=== PATIENT | female | born 1945 | race Two or more races ===

== ENCOUNTER 2019-11-09 07:07 | Inpatient (IN) | payer OTHER ==
[2019-11-09 07:26] VITALS: BMI 28.4
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
[2019-11-09] MEDS ORDERED: SODIUM CHLORIDE 0.9% 500 ML INFUS.BAG IV ONE ×2 (07:40→09:57)
[2019-11-09] MEDS ORDERED: ONDANSETRON 4 MG/2 ML VIAL IVPUSH ONE (07:41)
[2019-11-09] MEDS ORDERED: ACETAMINOPHEN 1000 MG/100 ML VIAL (NON FORMULARY) IVPB ONE ×2 (07:41→13:21)
[2019-11-09] MEDS ORDERED: ACETAMINOPHEN INJECTION 100 ML IVPB ONE (07:45)
[2019-11-09] MEDS ORDERED: ONDANSETRON 4 MG/2 ML VIAL ONE (07:45)
--- NOTE | 2019-11-09 07:45 | PDOC ---
Attending Attestation - Resident Resident Name: Benjamin Patton - ED Attending Attestation I have performed the following: I have examined & evaluated the patient, The case was reviewed & discussed with the resident, I agree w/resident's findings & plan - HPI HPI: 11/09/19 08:20 74 YOF with h/o HTN presenting with acute onset of RUQ abdominal pain a/w nausea and vomiting this morning at 2AM +chest pain with the vomiting no fever or chills, SOB, cough, urinary symptoms or changes. no surgical history no other sick contacts denies suspicious food intake. 11/09/19 11:09 - Physicial Exam PE: 11/09/19 07:45 Agree with the resident's HPI and PE as documented in the electronic medical record. mild distress 2/2 pain, EOMI, PERRL, nl conjunctiva, anicteric; neck supple. lungs clear, RRR, abdomen soft +RUQ tenderness, +De La Cruz's, no rebound, guarding. Back nontender. DALE x4, no focal neuro deficits. No peripheral edema. normal color for ethnicity, WWP. 11/09/19 08:21 11/09/19 11:09 - Medical Decision Making 11/09/19 07:45 Vital Signs Temp Pulse Resp BP Pulse Ox 97.3 F L 73 18 154/68 98 11/09/19 07:10 11/09/19 07:10 11/09/19 07:10 11/09/19 07:10 11/09/19 07:10 vitals reviewed, wnl, mildly hypertensive, afebrile normal HR and sats/breathing DDx abdominal pain: Renal colic, biliary colic, metabolic/electrolyte derangements. GERD, PUD, esophageal spasm, pancreatitis, hepatitis, constipation , colitis, gastroenteritis, cholecystitis, UTI, pyelonephritis, ileus, SBO, medication side effect, hernia, appendicitis, diverticulitis, mesenteric ischemia. msk strain, mesenteric adenitis, psoas abscess. ED interventions: IVF, analgesia, antiemetics, reassess labs/RUQ sono. EKG, cards panel. 11/09/19 08:58 Laboratory results are within normal limits, no leukocytosis coags are within normal limits. Normal LFTs and lipase unlikely be hepatitis/pancreatitis at this time. Troponin is negative unlikely due to cardiac as well Chest x-ray is clear no evidence of edema or infiltrate or mass, normal cardiac silhouette Right upper quadrant ultrasound remarkable for large stone, GB distension and + de la cruz's sign. no wall edema or fluid, but with several signs present, indicate of early acute cholecystitis. IV abx ceftriaxone and flagyl for empiric aerobe/anaerobe coverage with findings suggestive of early romeo Surg CS with Dr Loco for surg eval/management, will perform surgery todya. admit for sx cholelithiasis, ?early cholecystitis given findings of +murphys, distended GB and large stone. admit to Dr Bowens service 11/09/19 10:49 11/09/19 11:09 11/09/19 11:10 Heart Score/ECG Review #1 ECG reviewed & interpreted by me at: 07:55 General ECG Interpretation: Sinus Rhythm, Normal Rate, Normal Intervals 11/09/19 08:16 EKG sinus bradycardia at 59 bpm, no interval abnormalities, narrow QRS, ST and T wave segments and morphology normal. Nonspecific T wave abnormalities in III only
[2019-11-09 08:17] LABS: BASO % 0.3 % (0-2.0); EOS % 0.1 % (0-4.5); HEMATOCRIT 42.3 % (32.4-45.2); HEMOGLOBIN 13.7 GM/dL (10.7-15.3); LYMPH % 9.7 % (8-40); MCH 28.3 pg (25.7-33.7); MCHC 32.5 g/dl (32.0-36.0); MEAN PLT VOLUME 8.4 fl (7.5-11.1); MONO % 2.3 % (3.8-10.2); NEUT % 87.6 % (42.8-82.8); PLATELET COUNT 213 K/MM3 (134-434); RBC 4.86 M/mm3 (3.60-5.2); RDW 13.7 % (11.6-15.6); WHITE BLOOD COUNT 9.9 K/mm3 (4.0-10.0)
[2019-11-09 08:40] LABS: INR 1.03 (0.83-1.09); PROTHROMBIN TIME (PATIENT) 12.1 SEC (9.7-13.0)
[2019-11-09 08:53] LABS: ALBUMIN 3.4 g/dl (3.4-5.0); BILIRUBIN,TOTAL 0.3 mg/dL (0.2-1); BLOOD UREA NITROGEN 18.4 mg/dL (7-18); CALCIUM 10.4 mg/dL (8.5-10.1); CREATININE 0.8 mg/dL (0.55-1.3); TOT PROT 6.4 g/dl (6.4-8.2)
[2019-11-09] MEDS ORDERED: CEFTRIAXONE 2,000 MG in DEXTROSE 5%-WATER - 50 ML IVPB ONE (09:23)
[2019-11-09] MEDS ORDERED: CEFTRIAXONE 2 GM/100 ML BAG IVPB ONE (09:36)
[2019-11-09] MEDS ORDERED: morphine CARPU-JECT 4 MG/1 ML DISP.SYRIN IVPUSH ONE (09:46)
[2019-11-09] MEDS ORDERED: METOCLOPRAMIDE HCL INJECTION 10 MG/2 ML VIAL IVPB ONE (09:46)
[2019-11-09] MEDS ORDERED: METOCLOPRAMIDE HCL INJECTION 10 MG/2 ML VIAL ONE (09:46)
[2019-11-09] MEDS ORDERED: morphine SULFATE 4 MG/ML VIAL ONE (09:46)
[2019-11-09] MEDS ORDERED: LACTATED RINGERS SOLUTION 1,000 ML/1,000 ML INFUS.BAG IV SCH ×2 (10:45→17:52)
--- NOTE | 2019-11-09 11:19 | HP ---
Admitting History and Physical - Primary Care Physician PCP: Joey Horner - Admission Chief Complaint: RUQ pain History of Present Illness: Patient is a 74 y/o female with past medical history of HTN (no current med regimen) and asthma. Patient complain of RUQ pain with vomiting which began at 2am this morning. Pain became progressively worse and she presented to [facility] ER. In ER Abdominal US shows gallbladder normal in size but contains large calculus. Patient evaluated by Surgery in ER and will be going to OR for cholecystectomy today. History Source: Patient Limitations to Obtaining History: No Limitations - Past Medical History Cardiovascular: Yes: HTN Pulmonary: Yes: Asthma - Past Surgical History Past Surgical History: Yes: None - Smoking History Smoking history: Unknown if ever smoked - Alcohol/Substance Use Hx Alcohol Use: No - Social History Usual Living Arrangement: Yes: With Spouse ADL: Independent History of Recent Travel: No Home Medications - Allergies Allergies/Adverse Reactions: Allergies Allergy/AdvReac Type Severity Reaction Status Date / Time No Known Allergies Allergy Verified 11/09/19 07:23 Review of Systems - Review of Systems Constitutional: reports: Chills, Fever, Loss of Appetite Eyes: reports: No Symptoms HENT: reports: No Symptoms Neck: reports: No Symptoms Cardiovascular: reports: No Symptoms Respiratory: reports: Cough Gastrointestinal: reports: Abdominal Pain, Nausea, Vomiting Genitourinary: reports: No Symptoms Breasts: reports: No Symptoms Reported Musculoskeletal: reports: No Symptoms Integumentary: reports: No Symptoms Neurological: reports: No Symptoms Endocrine: reports: No Symptoms Hematology/Lymphatic: reports: No Symptoms Psychiatric: reports: No Symptoms Physical Examination Vital Signs: Vital Signs Temperature 97.3 F L 11/09/19 07:10 Pulse Rate 73 11/09/19 07:10 Respiratory Rate 18 11/09/19 07:10 Blood Pressure 154/68 11/09/19 07:10 O2 Sat by Pulse Oximetry (%) 98 11/09/19 07:10 Constitutional: Yes: No Distress, Calm Eyes: Yes: Conjunctiva Clear HENT: Yes: Atraumatic Neck: Yes: Supple Cardiovascular: Yes: Regular Rate and Rhythm Respiratory: Yes: Regular, CTA Bilaterally Gastrointestinal: Yes: Normal Bowel Sounds, Soft, Tenderness (RUQ) Musculoskeletal: Yes: Muscle Weakness Extremities: Yes: WNL Edema: No Neurological: Yes: Alert, Oriented Psychiatric: Yes: Alert, Oriented Labs: CBC, BMP 11/09/19 07:30 11/09/19 07:30 Imaging - Results Ultrasound: Report Reviewed EKG: Report Reviewed Problem List - Problems (1) Cholelithiasis Assessment/Plan: -Surgery Consult -GI consult -Abdominal US shows cholithiasis -NPO for surgery -Cholecystectomy this afternoon -Cardiology and PUlm consult for pre-op clearance -pain control -IV hydration -lipase 74 Code(s): K80.20 - CALCULUS OF GALLBLADDER W/O CHOLECYSTITIS W/O OBSTRUCTION (2) HTN (hypertension) Assessment/Plan: -low Na diet when resume -cardiology consult for pre-op clearance Code(s): I10 - ESSENTIAL (PRIMARY) HYPERTENSION (3) Asthma Assessment/Plan: -Bronchodilators -Pulm consult for pre-op clearance -keep SpO2 >90% -O2 via NC prn for SOB Code(s): J45.909 - UNSPECIFIED ASTHMA, UNCOMPLICATED Assessment/Plan see problem list SCDs
[2019-11-09] MEDS ORDERED: MORPHINE SULFATE 2 MG/ML VIAL IVPUSH PRN (11:39)
[2019-11-09] MEDS ORDERED: SODIUM CHLORIDE 1,000 ML IV SCH (12:00)
--- NOTE | 2019-11-09 12:52 | CON.PULM ---
Consult Consult Specialty:: PULM/CCM Referred by:: LILI Reason for Consultation:: Pre-op clearance - History of Present Illness Chief Complaint: Abdominal pain History of Present Illness: 74 F, HTN and supposed history of Asthma. Patient long time tobacco smoker. Currently smokes about 1 pack per week. Reports having developed asthma as an adult due to chronic exposure to cats. She does not recall having baseline PFTs. Occasionally uses Albuterol, last use was about 2 months ago. She is not steroid dependent. She have never been intubated. She does snore and according to her there are periods of apnea and "abnormal breathing" while she is asleep. Admitted via the ER due to abdominal pain and found to have Cholelithiasis. She will be going to the OR today. CXR: no acute process - History Source History Provided By: Patient, Family Member Limitations to Obtaining History: No Limitations - Past Medical History Cardio/Vascular: Yes: HTN Pulmonary: Yes: Asthma, Bronchitis, Sleep Apnea. No: Cancer, COPD, O2 Dependent , Pneumonia, Previously Intubated, Pulmonary Embolus, Pulmonary Fibrosis - Past Surgical History Past Surgical History: Yes: None - Alcohol/Substance Use Hx Alcohol Use: No - Smoking History Smoking history: Unknown if ever smoked - Social History ADL: Independent History of Recent Travel: No Home Medications - Allergies Allergies/Adverse Reactions: Allergies Allergy/AdvReac Type Severity Reaction Status Date / Time No Known Allergies Allergy Verified 11/09/19 07:23 Review of Systems - Review of Systems Constitutional: reports: Loss of Appetite, Malaise. denies: Chills, Night Sweats, Unintentional Wgt. Loss Eyes: reports: No Symptoms HENT: reports: No Symptoms Neck: reports: No Symptoms Cardiovascular: denies: Chest Pain, Edema, Palpitations, Shortness of Breath Respiratory: reports: Snoring. denies: Cough, Exercise Intolerance, Hemoptysis , Orthopnea, PND, SOB, SOB on Exertion, Wheezing Gastrointestinal: reports: Abdominal Pain, Bloating, Indigestion, Nausea. denies: Rectal Bleeding Genitourinary: reports: No Symptoms Breasts: reports: No Symptoms Reported Musculoskeletal: reports: No Symptoms Integumentary: reports: No Symptoms Neurological: reports: No Symptoms Endocrine: reports: No Symptoms Hematology/Lymphatic: reports: No Symptoms Psychiatric: reports: No Symptoms Physical Exam Vital Sings: Vital Signs Temperature 97.6 F 12/23/19 11:40 Pulse Rate 92 H 11/09/19 11:40 Respiratory Rate 18 11/09/19 11:40 Blood Pressure 155/67 11/09/19 11:40 O2 Sat by Pulse Oximetry (%) 96 11/09/19 11:40 Constitutional: Yes: No Distress Eyes: Yes: Conjunctiva Clear, EOM Intact HENT: Yes: Atraumatic, Normocephalic Neck: Yes: Supple, Trachea Midline Cardiovascular: Yes: Regular Rate and Rhythm Respiratory: No: Accessory Muscle Use, Diminished, Rales, Rhonchi, SOB, SOB on Exertion, Stridor, Tachypnea, Wheezes ...Inspection: Yes: WNL ...Clubbing: No Gastrointestinal: Yes: Soft, Abdomen, Obese, Tenderness. No: Palpable Mass, Pulsatile Mass, Vomiting Renal/: Yes: WNL Musculoskeletal: Yes: WNL Extremities: Yes: WNL Edema: No Peripheral Pulses WNL: Yes Integumentary: Yes: WNL Neurological: Yes: WNL, Alert, Oriented ...Motor Strength: WNL Psychiatric: Yes: WNL, Alert, Oriented Labs: CBC, BMP 11/09/19 07:30 11/09/19 07:30 Imaging - Results Chest X-ray: Report Reviewed, Image Reviewed Problem List - Problems (1) Asthma Code(s): J45.909 - UNSPECIFIED ASTHMA, UNCOMPLICATED (2) Cholelithiasis Code(s): K80.20 - CALCULUS OF GALLBLADDER W/O CHOLECYSTITIS W/O OBSTRUCTION (3) HTN (hypertension) Code(s): I10 - ESSENTIAL (PRIMARY) HYPERTENSION Assessment/Plan IMP: High clinical suspicion of Obstructive Sleep Apnea Syndrome More Likely COPD rather than true Asthma: At present clinically stable PLAN: No smoking counseled Supplemental O2 as needed BD TX PRN ordered No indication for systemic steroids Outpatient PFTs once stable Formal sleep testing after discharge Should have Screening LDCT Chest as an outpatient There is no Pulmonary Contraindication for OR or Anesthesia Dr Cleary
[2019-11-09] MEDS ORDERED: ALBUTEROL SO4 2.5/IPRATROPIUM 0.5 INH SOL 3 ML VIAL.NEB. NEB PRN ×2 (13:01→17:52)
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
[2019-11-09] MEDS ORDERED: ONDANSETRON 4 MG/2 ML VIAL IVPUSH PRN ×3 (13:21→17:52)
--- NOTE | 2019-11-09 13:26 | EKG ---
Test Reason : Blood Pressure : / mmHG Vent. Rate : 059 BPM Atrial Rate : 059 BPM P-R Int : 156 ms QRS Dur : 096 ms QT Int : 438 ms P-R-T Axes : 036 005 026 degrees QTc Int : 433 ms SINUS BRADYCARDIA WITH SINUS ARRHYTHMIA MINIMAL VOLTAGE CRITERIA FOR LVH, MAY BE NORMAL VARIANT BORDERLINE ECG NO PREVIOUS ECGS AVAILABLE Confirmed by CINTHYA GUTIÉRREZ MD ([id number]) on 11/09/2019 1:26:12 PM Referred By: Confirmed By:CINTHYA GUTIÉRREZ MD
[2019-11-09] MEDS ORDERED: DEXAMETHASONE SOD PHOSPHATE 4 MG/1 ML VIAL ONE (13:37)
[2019-11-09] MEDS ORDERED: PROPOFOL 20 ML ONE ×2 (13:38)
[2019-11-09] MEDS ORDERED: ROCURONIUM BROMIDE 50 MG/5 ML SYRINGE ONE (13:38)
[2019-11-09] MEDS ORDERED: MIDAZOLAM HCL 2 MG/2 ML SINGLE DOSE VIAL ONE (13:38)
[2019-11-09] MEDS ORDERED: EPHEDRINE SULFATE/0.9% NACL/PF 50 MG/10 ML SYRINGE NR ONE ×2 (13:44→15:49)
[2019-11-09] MEDS ORDERED: SUCCINYLCHOLINE CHLORIDE 200 MG/10 ML SYRINGE ONE (13:45)
[2019-11-09] MEDS ORDERED: VANCOMYCIN 1,000 MG VIAL (RESTRICTED TO ID ONLY) ONE (13:54)
[2019-11-09] MEDS ORDERED: ceFAZolin SODIUM 1 GM VIAL ONE (13:55)
[2019-11-09] MEDS ORDERED: LIDOCAINE HCL 1%, 10 MG/ML (20ML VIAL) ONE (14:06)
[2019-11-09] MEDS ORDERED: BENZOIN/ALOE VERA/STORAX/TOLU 58 ML BOTTLE ONE (14:06)
[2019-11-09] MEDS ORDERED: BUPIVACAINE HCL/PF 0.5% (5 MG/ML) 30 ML VIAL IJ ONE ×3 (14:07→15:58)
--- NOTE | 2019-11-09 14:44 | CON.CARD ---
Consult Consult Specialty:: Cardiology Reason for Consultation:: PreOp evaluation - History of Present Illness Chief Complaint: RUQ pain. History of Present Illness: This is a 74 year old female with a PMH of HTN (currently not on medications) and asthma. She presents with RUQ pain and vomiting. The is ED, Abdominal US shows gallbladder normal in size but contains large calculus. Patient evaluated by Surgery in ER and will be going to OR for cholecystectomy. She denies cardiac symptoms and has no significant past cardiac history. EKG 11/09/19 Sinus bradycardia wiht sinus arrhymia, normal intervals, normal axis, and NSSTTW changes. - Past Medical History Cardio/Vascular: Yes: HTN Pulmonary: Yes: Asthma, Bronchitis, Sleep Apnea. No: Cancer, COPD, O2 Dependent , Pneumonia, Previously Intubated, Pulmonary Embolus, Pulmonary Fibrosis ...: No - Past Surgical History Past Surgical History: Yes: None - Alcohol/Substance Use Hx Alcohol Use: No - Smoking History Smoking history: Current some day smoker Have you smoked in the past 12 months: Yes If you are a former smoker, when did you quit?: pack per week - Social History ADL: Independent History of Recent Travel: No Home Medications - Allergies Allergies/Adverse Reactions: Allergies Allergy/AdvReac Type Severity Reaction Status Date / Time No Known Allergies Allergy Verified 11/09/19 07:23 Vital Signs: Vital Signs Temperature 97.6 F 11/09/19 13:07 Pulse Rate 88 11/09/19 13:07 Respiratory Rate 18 11/09/19 13:07 Blood Pressure 158/88 11/09/19 13:07 O2 Sat by Pulse Oximetry (%) 95 11/09/19 13:07 Constitutional: Yes: No Distress Eyes: Yes: WNL HENT: Yes: WNL Neck: Yes: WNL Respiratory: Yes: CTA Bilaterally Gastrointestinal: Yes: Normal Bowel Sounds Cardiovascular: Yes: Regular Rate and Rhythm Heart Sounds: Yes: S1, S2 Extremities: Yes: WNL Edema: No Neurological: Yes: Alert, Oriented - Other Data Labs, Other Data: CBC, BMP 11/09/19 07:30 11/09/19 07:30 INR, PTT INR 1.03 (0.83-1.09) 11/09/19 07:30 Troponin, BNP 11/09/19 07:30 Troponin I < 0.02 Troponin, BNP 11/09/19 07:30 Troponin I < 0.02 Assessment/Plan 74 year old female with a PMH of HTN (currently not on medications) and asthma. She presents with RUQ pain and vomiting. The is ED, Abdominal US shows gallbladder normal in size but contains large calculus. Patient evaluated by Surgery in ER and will be going to OR for cholecystectomy. She denies cardiac symptoms and has no significant past cardiac history. EKG 11/09/19 Sinus bradycardia wiht sinus arrhymia, normal intervals, normal axis, and NSSTTW changes. There are no cardiac contraindications to surgery. The BP's are elevated to 158/88 mmHg This may be secondary to pain Would see if BP normalizes with pain control Would not use a beta ruyb given bradycardia Would consider adding amlodipine 2.5 mg PO daily if BP's remain elevated
[2019-11-09] MEDS ORDERED: CEFOXITIN SODIUM 1 GM IVPB ONE (15:02)
[2019-11-09] MEDS ORDERED: cefOXitin SODIUM 1 GM VIAL (RESTRICTED TO ID) IVPB ONE (15:02)
[2019-11-09] MEDS ORDERED: FAMOTIDINE 20 MG/50 ML IVPB 20 MG/50 ML MG IVPB ONE (15:21)
[2019-11-09] MEDS ORDERED: KETOROLAC TROMETHAMINE 30 MG/1 ML VIAL ONE (16:01)
[2019-11-09] MEDS ORDERED: NEOSTIGMINE METHYLSULFATE 0.5 MG/ML - 10 ML MDV ONE (16:09)
--- NOTE | 2019-11-09 16:33 | OP ---
Operative Note - Note: Operative Date: 11/09/19 Pre-Operative Diagnosis: symptomatic cholelithiasis Operation: laparoscopic cholecystectomy Findings: gallbladder with very large mobile stones, critical view identified Post-Operative Diagnosis: Same as Pre-op Surgeon: Moses Dobson Community Outreach Manager: Dora Isabel Anesthesiologist/MARINE SERVICES TECHNICIAN: Apryl Rojas Anesthesia: General, Local (20ml 0.5% marcaine) Specimens Removed: gallbladder to pathology Estimated Blood Loss (mls): 10 Fluid Volume Replaced (mls): 1,300 (crystalloid) Operative Report Dictated: Yes
--- NOTE | 2019-11-09 17:03 | SURG ---
Surgery [employer] Support Note [employer] Support: Dora Isabel PA-C Date of Service: 11/09/19 Diagnosis: symptomatic cholelithiasis Procedure: laparoscopic cholecystectomy I was present for the entirety of the operative procedure. For further detail, please refer to operative report. Visit type - Case Type Case Type: ED Admission - Emergency Emergency Visit: Yes ED Registration Date: 11/09/19 Care time: The patient presented to the Emergency Department on the above date and was hospitalized for further evaluation of their emergent condition. - New patient This patient is new to me today: Yes Date on this admission: 11/09/19
[2019-11-09] MEDS ORDERED: LACTATED RINGERS SOLUTION 1,000 ML IV SCH (17:15)
[2019-11-09] MEDS ORDERED: ACETAMINOPHEN 325 MG TABLET (FP) PO SCH (18:00)
[2019-11-09] MEDS: ACETAMINOPHEN 325 MG TABLET (FP) PO SCH ×2 (18:24→23:41)
[2019-11-09] MEDS ORDERED: IBUPROFEN 600 MG TABLET (FP) PO SCH (21:00)
[2019-11-09] MEDS: IBUPROFEN 600 MG TABLET (FP) PO SCH (21:22)
[2019-11-10] MEDS: IBUPROFEN 600 MG TABLET (FP) PO SCH ×2 (02:31→09:29)
[2019-11-10] MEDS: ACETAMINOPHEN 325 MG TABLET (FP) PO SCH ×2 (05:36→12:40)
[2019-11-10] MEDS ORDERED: PT OWN MED DRAWER 7, Y5N ONE (06:55)
[2019-11-10 08:28] LABS: BASO % 0.2 % (0-2.0); HEMATOCRIT 37.1 % (32.4-45.2); HEMOGLOBIN 11.9 GM/dL (10.7-15.3); LYMPH % 9.6 % (8-40); MCHC 32.1 g/dl (32.0-36.0); MEAN CELL VOLUME 87.1 fl (80-96); MEAN PLT VOLUME 8.1 fl (7.5-11.1); MONO % 9.8 % (3.8-10.2); NEUT % 80.4 % (42.8-82.8); PLATELET COUNT 182 K/MM3 (134-434); RBC 4.26 M/mm3 (3.60-5.2); RDW 13.8 % (11.6-15.6); WHITE BLOOD COUNT 15.2 K/mm3 (4.0-10.0)
--- NOTE | 2019-11-10 08:51 | PN ---
Progress Note, Physician History of Present Illness: 74 year old female with a PMH of HTN (currently not on medications) and asthma. She presented with RUQ pain and vomiting. The is ED, Abdominal US showed gallbladder normal in size but contains large calculus. Patient evaluated by Surgery in ER and is now s/p cholecystectomy 11/09/19. - Current Medication List Current Medications: Active Medications Acetaminophen (Tylenol -) 650 mg PO Q6H [facility] Last Admin: 11/10/19 05:36 Dose: 650 mg Albuterol/Ipratropium (Duoneb -) 1 amp NEB Q4H PRN PRN Reason: SHORTNESS OF BREATH Fentanyl (Sublimaze Injection -) 50 mcg IVPUSH Q5M PRN PRN Reason: PAIN-PACU ORDER X 4 DOSES ONLY Lactated Ringer's (Lactated Ringers Solution) 1,000 mls @ 125 mls/hr IV ASDIR FATUMA Lactated Ringer's (Lactated Ringers Solution) 1,000 ml in 1,000 mls @ 125 mls/ hr IV ASDIR FATUMA Last Admin: 11/09/19 18:26 Dose: 125 mls/hr Ibuprofen (Motrin -) 600 mg PO Q6H [facility] Last Admin: 11/10/19 02:31 Dose: 600 mg Ondansetron HCl (Zofran Injection) 4 mg IVPUSH Q6H PRN PRN Reason: NAUSEA AND/OR VOMITING Ondansetron HCl (Zofran Injection) 4 mg IVPUSH Q4H PRN PRN Reason: NAUSEA AND/OR VOMITING - Objective Vital Signs: Vital Signs Temperature 98.8 F 11/10/19 05:54 Pulse Rate 60 11/10/19 05:54 Respiratory Rate 20 11/10/19 05:54 Blood Pressure 140/60 11/10/19 05:54 O2 Sat by Pulse Oximetry (%) 100 11/09/19 21:00 Constitutional: Yes: No Distress, Calm Eyes: Yes: Conjunctiva Clear, EOM Intact HENT: Yes: Atraumatic, Normocephalic Neck: Yes: Trachea Midline Cardiovascular: Yes: Regular Rate and Rhythm Respiratory: Yes: CTA Bilaterally Gastrointestinal: Yes: Normal Bowel Sounds, Soft Musculoskeletal: Yes: WNL Extremities: Yes: WNL Edema: No Labs: CBC, BMP 11/10/19 07:36 INR, PTT INR 1.03 (0.83-1.09) 11/09/19 07:30 Assessment/Plan 74 year old female with a PMH of HTN (currently not on medications) and asthma. She presents with RUQ pain and vomiting. The is ED, Abdominal US shows gallbladder normal in size but contains large calculus. Patient evaluated by Surgery in ER and will be going to OR for cholecystectomy. She denies cardiac symptoms and has no significant past cardiac history. EKG 11/09/19 Sinus bradycardia wiht sinus arrhymia, normal intervals, normal axis, and NSSTTW changes. stable postop cardiac status. would defer htn treatment for out patient. pain control per surgery.
[2019-11-10 09:00] LABS: CHOLESTEROL 174 mg/dL (50-200); HDL CHOLESTEROL 60 mg/dL (40-60); LDL CHOLESTEROL (ONLY SJRH) 100 mg/dL (5-100); TRIGLYCERIDES 74 mg/dL (0-150)
[2019-11-10 09:03] LABS: BILIRUBIN,TOTAL 0.6 mg/dL (0.2-1); BLOOD UREA NITROGEN 14.8 mg/dL (7-18); CALCIUM 10.1 mg/dL (8.5-10.1); CREATININE 0.9 mg/dL (0.55-1.3); POTASSIUM 4.4 mmol/L (3.5-5.1); TOT PROT 5.6 g/dl (6.4-8.2)
[2019-11-10 09:29] VITALS: BP 139/67; PULSE 58; TEMP 99.2
--- NOTE | 2019-11-10 10:29 | PN ---
Progress Note (short form) - Note Progress Note: Resting in NAD. Post mild pot-op discomfort. Breathing feel fine. No CP or SOB. Intake & Output 11/07/19 11/08/19 11/09/19 11/10/19 23:59 23:59 23:59 23:59 Intake Total 1875 Output Total 10 Balance 1865 Weight 176 lb 176 lb Last Vital Signs Temp Pulse Resp BP Pulse Ox 99.2 F 58 L 20 139/67 100 11/10/19 09:28 11/10/19 09:28 11/10/19 09:28 11/10/19 09:28 11/09/19 21:00 Active Medications Acetaminophen (Tylenol -) 650 mg PO Q6H [facility] Last Admin: 11/10/19 05:36 Dose: 650 mg Albuterol/Ipratropium (Duoneb -) 1 amp NEB Q4H PRN PRN Reason: SHORTNESS OF BREATH Fentanyl (Sublimaze Injection -) 50 mcg IVPUSH Q5M PRN PRN Reason: PAIN-PACU ORDER X 4 DOSES ONLY Lactated Ringer's (Lactated Ringers Solution) 1,000 mls @ 125 mls/hr IV ASDIR [facility] Lactated Ringer's (Lactated Ringers Solution) 1,000 ml in 1,000 mls @ 125 mls/ hr IV ASDIR [facility] Last Admin: 11/09/19 18:26 Dose: 125 mls/hr Ibuprofen (Motrin -) 600 mg PO Q6H [facility] Last Admin: 11/10/19 09:29 Dose: 600 mg Ondansetron HCl (Zofran Injection) 4 mg IVPUSH Q6H PRN PRN Reason: NAUSEA AND/OR VOMITING Ondansetron HCl (Zofran Injection) 4 mg IVPUSH Q4H PRN PRN Reason: NAUSEA AND/OR VOMITING Constitutional: Yes: No Distress Eyes: Yes: Conjunctiva Clear, EOM Intact HENT: Yes: Atraumatic, Normocephalic Neck: Yes: Supple, Trachea Midline Cardiovascular: Yes: Regular Rate and Rhythm Respiratory: No: Accessory Muscle Use, Diminished, Rales, Rhonchi, SOB, SOB on Exertion, Stridor, Tachypnea, Wheezes ...Inspection: Yes: WNL ...Clubbing: No Gastrointestinal: Yes: Soft, Abdomen, Obese, Mild tenderness. No: Palpable Mass , Pulsatile Mass, Vomiting Renal/: Yes: WNL Musculoskeletal: Yes: WNL Extremities: Yes: WNL Edema: No Peripheral Pulses WNL: Yes Integumentary: Yes: WNL Neurological: Yes: WNL, Alert, Oriented ...Motor Strength: WNL Psychiatric: Yes: WNL, Alert, Oriented Labs: Laboratory Results - last 24 hr 11/09/19 11/09/19 11/10/19 13:42 17:40 07:36 WBC 15.2 H RBC 4.26 Hgb 11.9 Hct 37.1 MCV 87.1 MCH 28.0 MCHC 32.1 RDW 13.8 Plt Count 182 MPV 8.1 Absolute Neuts (auto) 12.2 H Neutrophils % 80.4 Lymphocytes % 9.6 Monocytes % 9.8 D Eosinophils % 0.0 D Basophils % 0.2 Nucleated RBC % 0 Sodium Potassium Chloride Carbon Dioxide Anion Gap BUN Creatinine Est GFR (CKD-EPI)AfAm Est GFR (CKD-EPI)NonAf POC Glucometer 137 Random Glucose Calcium Total Bilirubin AST ALT Alkaline Phosphatase Total Protein Albumin Triglycerides Cholesterol Total LDL Cholesterol HDL Cholesterol TSH Thyroxine (T4) Blood Type B POSITIVE Antibody Screen Negative 11/10/19 11/10/19 07:36 07:36 WBC RBC Hgb Hct MCV MCH MCHC RDW Plt Count MPV Absolute Neuts (auto) Neutrophils % Lymphocytes % Monocytes % Eosinophils % Basophils % Nucleated RBC % Sodium 142 Potassium 4.4 Chloride 110 H Carbon Dioxide 26 Anion Gap 6 L BUN 14.8 Creatinine 0.9 Est GFR (CKD-EPI)AfAm 72.49 Est GFR (CKD-EPI)NonAf 62.55 POC Glucometer Random Glucose 106 Calcium 10.1 Total Bilirubin 0.6 AST 83 H ALT 95 H Alkaline Phosphatase 100 Total Protein 5.6 L Albumin 3.0 L Triglycerides 74 Cholesterol 174 Total LDL Cholesterol 100 HDL Cholesterol 60 TSH 0.59 Thyroxine (T4) 7.6 Blood Type Antibody Screen Problem List - Problems (1) Asthma Code(s): J45.909 - UNSPECIFIED ASTHMA, UNCOMPLICATED (2) Cholelithiasis Code(s): K80.20 - CALCULUS OF GALLBLADDER W/O CHOLECYSTITIS W/O OBSTRUCTION (3) HTN (hypertension) Code(s): I10 - ESSENTIAL (PRIMARY) HYPERTENSION Assessment/Plan IMP: High clinical suspicion of Obstructive Sleep Apnea Syndrome More Likely COPD rather than true Asthma: At present clinically stable PLAN: Incentive Spirometry Supplemental O2 as needed BD TX PRN ordered No indication for systemic steroids Outpatient PFTs once stable Formal sleep testing after discharge Should have Screening LDCT Chest as an outpatient Dr Cleary Problem List - Problems (1) Asthma Code(s): J45.909 - UNSPECIFIED ASTHMA, UNCOMPLICATED Qualifiers: Asthma severity: mild Asthma persistence: intermittent Asthma complication type: uncomplicated Qualified Code(s): J45.20 - Mild intermittent asthma, uncomplicated (2) Cholelithiasis Code(s): K80.20 - CALCULUS OF GALLBLADDER W/O CHOLECYSTITIS W/O OBSTRUCTION Qualifiers: Cholelithiasis location: gallbladder Cholecystitis presence: without cholecystitis Biliary obstruction: without biliary obstruction Qualified Code(s): K80.20 - Calculus of gallbladder without cholecystitis without obstruction (3) HTN (hypertension) Code(s): I10 - ESSENTIAL (PRIMARY) HYPERTENSION Qualifiers: Hypertension type: essential hypertension Qualified Code(s): I10 - Essential (primary) hypertension
--- NOTE | 2019-11-10 11:10 | PN ---
Progress Note, Physician - Current Medication List Current Medications: Active Medications Acetaminophen (Tylenol -) 650 mg PO Q6H [facility] Last Admin: 11/10/19 05:36 Dose: 650 mg Albuterol/Ipratropium (Duoneb -) 1 amp NEB Q4H PRN PRN Reason: SHORTNESS OF BREATH Fentanyl (Sublimaze Injection -) 50 mcg IVPUSH Q5M PRN PRN Reason: PAIN-PACU ORDER X 4 DOSES ONLY Lactated Ringer's (Lactated Ringers Solution) 1,000 mls @ 125 mls/hr IV ASDIR FATUMA Lactated Ringer's (Lactated Ringers Solution) 1,000 ml in 1,000 mls @ 125 mls/ hr IV ASDIR FATUMA Last Admin: 11/09/19 18:26 Dose: 125 mls/hr Ibuprofen (Motrin -) 600 mg PO Q6H [facility] Last Admin: 11/10/19 09:29 Dose: 600 mg Ondansetron HCl (Zofran Injection) 4 mg IVPUSH Q6H PRN PRN Reason: NAUSEA AND/OR VOMITING Ondansetron HCl (Zofran Injection) 4 mg IVPUSH Q4H PRN PRN Reason: NAUSEA AND/OR VOMITING - Objective Vital Signs: Vital Signs Temperature 99.2 F 11/10/19 09:28 Pulse Rate 58 L 11/10/19 09:28 Respiratory Rate 20 11/10/19 09:28 Blood Pressure 139/67 11/10/19 09:28 O2 Sat by Pulse Oximetry (%) 92 L 11/10/19 09:00 Cardiovascular: Yes: Regular Rate and Rhythm Respiratory: Yes: Regular, CTA Bilaterally Gastrointestinal: Yes: Normal Bowel Sounds, Soft, Other (dressing intact) Labs: CBC, BMP 11/10/19 07:36 11/10/19 07:36 INR, PTT INR 1.03 (0.83-1.09) 11/09/19 07:30 Problem List - Problems (1) Cholelithiasis Assessment/Plan: -Abdominal US shows cholithiasis -Diet per surgery -Cholecystectomy Operative Date: 11/09/19 Pre-Operative Diagnosis: symptomatic cholelithiasis Operation: laparoscopic cholecystectomy Findings: gallbladder with very large mobile stones, critical view identified Post-Operative Diagnosis: Same as Pre-op Surgeon: Moses Dobson -pain control -IV hydration -lipase 74 Code(s): K80.20 - CALCULUS OF GALLBLADDER W/O CHOLECYSTITIS W/O OBSTRUCTION Qualifiers: Cholelithiasis location: gallbladder Cholecystitis presence: without cholecystitis Biliary obstruction: without biliary obstruction Qualified Code(s): K80.20 - Calculus of gallbladder without cholecystitis without obstruction (2) Asthma Assessment/Plan: -Bronchodilators -keep SpO2 >90% -O2 via NC prn for SOB Code(s): J45.909 - UNSPECIFIED ASTHMA, UNCOMPLICATED Qualifiers: Asthma severity: mild Asthma persistence: intermittent Asthma complication type: uncomplicated Qualified Code(s): J45.20 - Mild intermittent asthma, uncomplicated (3) HTN (hypertension) Assessment/Plan: -low Na diet when resume -cardiology consult noted Code(s): I10 - ESSENTIAL (PRIMARY) HYPERTENSION Qualifiers: Hypertension type: essential hypertension Qualified Code(s): I10 - Essential (primary) hypertension
--- NOTE | 2019-11-10 12:56 | PN ---
Progress Note, Physician History of Present Illness: Pt s/p lap romeo for symptomatic cholelithiasis - probably element of chronic cholecystitis as well. Seen and examined in bed with present. She is feeling better; pain mild and managed well with tyl/ibu alternating. Tolerating diet, ambulated, voided, passing gas but no BM yet. Doing well. - Current Medication List Current Medications: Active Medications Acetaminophen (Tylenol -) 650 mg PO Q6H FATUMA Last Admin: 11/10/19 12:40 Dose: 650 mg Albuterol/Ipratropium (Duoneb -) 1 amp NEB Q4H PRN PRN Reason: SHORTNESS OF BREATH Ibuprofen (Motrin -) 600 mg PO Q6H FATUMA Last Admin: 11/10/19 09:29 Dose: 600 mg Ondansetron HCl (Zofran Injection) 4 mg IVPUSH Q4H PRN PRN Reason: NAUSEA AND/OR VOMITING - Objective Vital Signs: Vital Signs Temperature 99.2 F 11/10/19 09:28 Pulse Rate 58 L 11/10/19 09:28 Respiratory Rate 20 11/10/19 09:28 Blood Pressure 139/67 11/10/19 09:28 O2 Sat by Pulse Oximetry (%) 92 L 11/10/19 09:00 Constitutional: Yes: Well Nourished, No Distress, Calm Eyes: Yes: Conjunctiva Clear, EOM Intact. No: Sclera Icterus HENT: Yes: Atraumatic, Normocephalic Gastrointestinal: Yes: Soft, Abdomen, Obese, Tenderness (mild, incisional, mainly umbilical - no quadrant tenderness anymore). No: Distention (minimal) Extremities: No: Cool, Cyanosis Integumentary: Yes: Incision (x4 dressed). No: Jaundice, Rash Wound/Incision: Yes: Steri Strips (under dressings), Dressing Dry and Intact (x4 ). No: Dressing Removed Neurological: Yes: Alert, Oriented Labs: CBC, BMP 11/10/19 07:36 11/10/19 07:36 CMP Sodium 142 mmol/L (136-145) 11/10/19 07:36 Potassium 4.4 mmol/L (3.5-5.1) 11/10/19 07:36 Chloride 110 mmol/L (98-107) H 11/10/19 07:36 Carbon Dioxide 26 mmol/L (21-32) 11/10/19 07:36 Anion Gap 6 MMOL/L (8-16) L 11/10/19 07:36 BUN 14.8 mg/dL (7-18) 11/10/19 07:36 Creatinine 0.9 mg/dL (0.55-1.3) 11/10/19 07:36 Est GFR (CKD-EPI)AfAm 72.49 11/10/19 07:36 Est GFR (CKD-EPI)NonAf 62.55 11/10/19 07:36 POC Glucometer 98 UNITS (80-120) 11/10/19 11:41 Random Glucose 106 mg/dL (74-106) 11/10/19 07:36 Calcium 10.1 mg/dL (8.5-10.1) 11/10/19 07:36 Total Bilirubin 0.6 mg/dL (0.2-1) 11/10/19 07:36 AST 83 U/L (15-37) H 11/10/19 07:36 ALT 95 U/L (13-61) H 11/10/19 07:36 Alkaline Phosphatase 100 U/L (45-117) 11/10/19 07:36 Creatine Kinase 58 U/L (26-192) 11/09/19 07:30 Troponin I < 0.02 ng/ml (0.00-0.05) 11/09/19 07:30 Total Protein 5.6 g/dl (6.4-8.2) L 11/10/19 07:36 Albumin 3.0 g/dl (3.4-5.0) L 11/10/19 07:36 Triglycerides 74 mg/dL (0-150) 11/10/19 07:36 Cholesterol 174 mg/dL (50-200) 11/10/19 07:36 Total LDL Cholesterol 100 mg/dL (5-100) 11/10/19 07:36 HDL Cholesterol 60 mg/dL (40-60) 11/10/19 07:36 Lipase 74 U/L (73-393) 11/09/19 07:30 TSH 0.59 uIU/ml (0.358-3.74) 11/10/19 07:36 Thyroxine (T4) 7.6 ug/dl (4.5-13.9) 11/10/19 07:36 Problem List - Problems (1) Calculus of gallbladder without cholecystitis without obstruction Assessment/Plan: POD1 s/p laparoscopic cholecystectomy doing well tolerating diet ambulating, voiding, + flatus pain mild and controlled with nonnarcotics labs within expected range for postop ok to d/c home instructions in d/c plan to f/u with PMD within 2 wks f/u with surgery end of November - gave them my card can call the office if any concerns or questions discussed with Dr. Bowens Code(s): K80.20 - CALCULUS OF GALLBLADDER W/O CHOLECYSTITIS W/O OBSTRUCTION (2) RUQ pain Assessment/Plan: resolved Code(s): R10.11 - RIGHT UPPER QUADRANT PAIN (3) Nausea and vomiting Assessment/Plan: resolved Code(s): R11.2 - NAUSEA WITH VOMITING, UNSPECIFIED Qualifiers: Vomiting type: unspecified Vomiting Intractability: non-intractable Qualified Code(s): R11.2 - Nausea with vomiting, unspecified (4) Asthma Assessment/Plan: f/u with pulmonary Code(s): J45.909 - UNSPECIFIED ASTHMA, UNCOMPLICATED Qualifiers: Asthma severity: mild Asthma persistence: intermittent Asthma complication type: uncomplicated Qualified Code(s): J45.20 - Mild intermittent asthma, uncomplicated (5) HTN (hypertension) Assessment/Plan: f/u with PMD, cardiology Code(s): I10 - ESSENTIAL (PRIMARY) HYPERTENSION Qualifiers: Hypertension type: essential hypertension Qualified Code(s): I10 - Essential (primary) hypertension (6) Tobacco dependence due to cigarettes Code(s): F17.210 - NICOTINE DEPENDENCE, CIGARETTES, UNCOMPLICATED
--- NOTE | 2019-11-10 14:06 | DS ---
Physical Examination Vital Signs: Vital Signs Temperature 99.2 F 11/10/19 09:28 Pulse Rate 58 L 11/10/19 09:28 Respiratory Rate 20 11/10/19 09:28 Blood Pressure 139/67 11/10/19 09:28 O2 Sat by Pulse Oximetry (%) 92 L 11/10/19 09:00 Labs: CBC, BMP 11/10/19 07:36 11/10/19 07:36 Discharge Summary Problems reviewed: Yes Reason For Visit: CHOLELITHIASIS Current Active Problems Asthma (Acute) Calculus of gallbladder without cholecystitis without obstruction (Acute) Cholelithiasis (Acute) HTN (hypertension) (Acute) Nausea and vomiting (Acute) RUQ pain (Acute) Tobacco dependence due to cigarettes (Acute) Condition: Good - Instructions Diet, Activity, Other Instructions: Postoperative instructions: You had a laparoscopic cholecystectomy on 11/09/[address] Moses Dobson of [facility]. Activity: Resume your usual activities gradually, but no heavy exertion or lifting more than 10-15 pounds for 1 month. Remove dressings 48 hours after surgery; sticky tapes underneath will fall off by themselves. You may shower daily with just the sticky tapes, just pat the incision areas dry. No bath or swimming until skin incisions have healed. Eat lightly at first, but advance to your usual diet as tolerated. Pain: For pain, you may use and alternate Tylenol (acetaminophen) 1-2 pills and/ or ibuprofen 200 mg (1-3 pills) every 6 hours each as needed; this means that you can take one OR the other at 3-hour intervals. Do not take more than 4000mg of acetaminophen in a day. Take medications as prescribed or indicated on the labeling. Follow-up: Call Dr. Dobson's office at [phone] to make your postop appointment (Saturday toward the end of November). Clinic is held in the [facility] on the first floor of [facility]. Dr. Dobson will be away until later in November, but can be reached through her office if needed. Call the office and/or go to the ER if you have: * increasing pain not responsive to pain medication * fever of 101F or higher * vomiting * unusual or increasing bleeding or drainage from wounds * increasing redness or swelling at wound sites Also, see your primary medical doctor, Dr. Horner, within 1-2 weeks. Please bring all your paperwork to your appointment with him. He should check your incision sites as well, and may call Dr. Dobson's office if he has any concerns. Follow up with pulmonary and cardiology as recommended/referred, as well: You will need to see pulmonary (Dr. Cleary) to be evaluated for sleep apnea and to follow up on your asthma/COPD. Call for an appointment to see Dr. Cleary within the next 2 weeks. You will need to see cardiology (Dr. Lee) [and Dr. Horner] regarding your high blood pressure and your medication. Please make an appointment with Dr. Lee within 2 weeks as well. You need blood work with dr Horner to check your white count and liver enzymes Referrals: Lamonte Lee MD [Staff Physician] - Moses Dobson MD [Staff Physician] - 1 Month Mark Cleary MD [Staff Physician] - Joey Horner [Primary Care Provider] - 1 Week Disposition: HOME - Home Medications Comprehensive Discharge Medication List: Ambulatory Orders Acetaminophen [Tylenol .Regular Strength -] 650 mg PO Q6H tablet 11/10/19 Ibuprofen [Motrin -] 600 mg PO Q6H tablet 11/10/19
--- NOTE | 2019-11-12 16:23 | PATH ---
Surgical Pathology Report Patient Name: ALANNA PADILLA [facility]. Rec. #: [id number] /Age/Gender: 1945 (Age: 74) / F Account: [id number] Location: [address] [place] [address] Taken: 11/09/2019 Received: 11/10/2019 Reported: 11/12/2019 Physicians: Moses Dobson M.D. Specimen(s) Received GALLBLADDER Clinical History Cholelithiasis, symptomatic Final Diagnosis GALLBLADDER, LAPAROSCOPIC CHOLECYSTECTOMY: ACUTE AND CHRONIC CHOLECYSTITIS, CHOLELITHIASIS, AND ADENOMYOMATOUS HYPERPLASIA. Electronically Signed Lola Teague M.D. Gross Description Received in formalin, labeled "gallbladder," is a 12.5 x 3.5 x 3.3 cm. gallbladder with a 0.2 cm. in length portion of cystic duct attached. The outer surface is horton-pink with a focal defect and varies from smooth to shaggy. The lumen contains horton, tenacious bile as well as 2 horton-brown, irregular choleliths measuring 2.5 and 4.8 cm in greatest dimension. The mucosa displays a 0.4 cm greatest dimension polypoid lesion. The lesion is 2.5 cm from the cystic duct margin. The gallbladder fundus displays a 1.7 x 1.5 x 1.4 cm cystic lesion within the wall. The wall of the gallbladder averages 0.1 cm. in thickness. Box Spring Maker sections are submitted in 4 cassettes as follows: 1-cystic duct margin and uninvolved mucosa; 2-mucosal polyp; 3-4-fundic lesion. 11/10/201911/10/2019
--- NOTE | 2019-11-25 12:41 | OP ---
DATE OF OPERATION: 11/09/2019 PREOPERATIVE DIAGNOSIS: Symptomatic cholelithiasis with very large stone. POSTOPERATIVE DIAGNOSIS: Symptomatic cholelithiasis with very large stone. PROCEDURE PERFORMED: Laparoscopic cholecystectomy. SURGEON: Moses Dobson MD VENDING MACHINE OPERATOR: DELBERT Lea ANESTHESIA: General endotracheal and local, 20 mL of 0.5% Marcaine. ESTIMATED BLOOD LOSS: 10 mL. FLUIDS: 1300 mL of crystalloid. SPECIMEN: Gallbladder to Pathology. FINDINGS: Gallbladder with very large mobile stones. The critical view was identified. DISPOSITION: Stable and extubated to PACU. INDICATIONS FOR PROCEDURE: Patient is a 74-year-old [place] female smoker with hypertension, asthma, borderline diabetes, not currently taking any of her regular home medications (only takes hypertensive medication sometimes, not in the last week). She was admitted to medicine through the emergency room having noted vague abdominal pain a little over a week ago, which culminated in significant right upper quadrant pain just the morning prior to presentation, when she woke at 2 AM with pain, nausea, vomiting, headache, and alternate feelings of hot and cold. She had also had 4 loose bowel movements and came to the emergency room, where her labs were essentially normal. She was afebrile and was given IV fluids and pain medicine, which did help. An ultrasound showed a very large stone in her gallbladder (approximately 5 cm) with a gallbladder at least 12 cm long, without obvious signs of cholecystitis, but she still had significant pain and tenderness. She was given IV fluids and antibiotics by the emergency room and admitted to medicine, and was still feeling somewhat nauseated when seen by surgery, with tenderness in the right upper quadrant and epigastric areas. Risks, benefits, and alternatives of laparoscopic, possible open, cholecystectomy were discussed with the patient including, but not limited to, bleeding, infection, injury to adjacent structures, bile leak or ductal injury, intra-abdominal abscess, incisional hernia, need for further procedures, or . Alternatives were also discussed, including delayed or no surgery, with attendant risks of failure of nonoperative therapy, cholecystitis, cholangitis, pancreatitis, sepsis, and their sequelae. The patient desired to proceed with the operation, signed informed consent for the same, and is now brought to the OR for this procedure. OPERATIVE TECHNIQUE: The patient was brought to the operating room and laid supine on the operating table. Appropriate antibiotics were continued in the perioperative period. Sequential compression devices were applied to bilateral lower extremities. After induction and intubation by anesthesia, the patient's abdomen was prepped and draped in sterile fashion. A small supraumbilical midline incision was made with a scalpel and carried into subcutaneous tissue with electrocautery, until the abdominal wall fascia was identified, scored, and elevated with Bernardo clamps. The peritoneum was entered bluntly with the tip of a clamp, and a fingertip inserted to ensure entry into the abdominal cavity and the absence of any underlying adhesions. A stay suture of 0 Vicryl was then placed in [id number] fashion in the fascia for later closure, and the Ollie trocar introduced directly into the abdominal cavity, which was secured in place with the balloon. The abdomen was insufflated with carbon dioxide. The patient was placed in reverse Trendelenburg position, and a laparoscope inserted to inspect the abdominal cavity. The gallbladder projected from under the liver with what was likely the large stone taking up a good portion of the body of the gallbladder. Three additional 5-mm ports were placed under direct vision, one in the subxiphoid area and 2 in the right upper quadrant. Graspers were introduced in the right side, and a small portion of tissue at the very fundus of the gallbladder was able to be grasped with a grasper and used gently to elevate the end of the gallbladder superiorly over the liver edge. The 2nd grasper was able to grasp a portion of the infundibulum of the gallbladder just below the very large mobile stone. The [place] dissector was used in the operative port to begin dissecting out the cystic duct and artery. These were isolated one at a time and noted clearly to be the only 2 structures directly entering into or onto the gallbladder, with the critical view being identified showing the liver bed behind these structures, which were visualized from both medial and lateral sides. First the duct and then the artery were clipped, 2 proximally and 1 distally, then both were divided with Endo scissors between the clips. Hook cautery was then used to begin taking the gallbladder off the liver bed. At one point, there was a very small hole created in the gallbladder with a small amount of bile spill, which was suctioned with the suction manager freelance tool. Once the gallbladder had been completely taken off the liver bed, it was placed in an EndoCatch bag. Camera was moved to the subxiphoid port, and the bag with the gallbladder in it was retrieved out the Ollie/umbilical site. At least two very large mobile stones were palpated in the gallbladder, which was passed off for a pathology specimen. Once the Ollie trocar and pneumoperitoneum had been re-established, the camera was returned to the umbilical port. The operative field was inspected for hemostasis. There was no active bleeding noted. The suction manager freelance was used to suction the field of a small amount of spilled bile and fluid. The 5-mm ports were removed under direct vision, and Ollie trocar removed as well, and the abdomen was exsufflated of carbon dioxide. The patient was returned to neutral position, and the stay suture at the umbilicus was tied to close the fascia there. Hemostasis was achieved in the port sites with electrocautery where needed, and local anesthetic was infiltrated into all 4 port sites. The skin was then closed with 4-0 Vicryl subcuticular sutures, including a running at the umbilicus. Benzoin and Steri- Strips were applied over each incision. Dressings of gauze and Tegaderm were placed over these. Counts were correct at the end of the procedure. The patient was then awakened and extubated by Anesthesia, moved back to a stretcher, and taken to the recovery room in stable condition, having tolerated the procedure well. DELBERT Isabel was an essential internal medicine physician assistant throughout the procedure, beginning with help entering the abdominal cavity, placement of the right upper quadrant port sites , and retraction and manipulation of the gallbladder throughout the case, as well as local infiltration, and closure of the right upper quadrant port sites. Moses Dobson M.D. [id number] MTDD
== END 2019-11-10 14:42 | disposition home or self-care (01) | DRG 419 ==
LOC: JER 07:07 → JERBED 10:08 → J6S 11:55
PROVIDERS: ADMIT Family Medicine; ATTEND Family Medicine
PROC: 0FT44ZZ Resection of Gallbladder, Percutaneous Endoscopic Approach (ICD-10-PCS; principal; 2019-11-09 11:00)
DX: K80.20 Calculus of gallbladder without cholecystitis without obstruction (principal); I10 Essential (primary) hypertension; R11.2 Nausea with vomiting, unspecified; R00.1 Bradycardia, unspecified; G47.33 Obstructive sleep apnea (adult) (pediatric); J44.9 Chronic obstructive pulmonary disease, unspecified; R10.11 Right upper quadrant pain; F17.210 Nicotine dependence, cigarettes, uncomplicated; J45.20 Mild intermittent asthma, uncomplicated
CPT/HCPCS: 36415; 71045-TC-FY; 76705-TC; 80053; 80061; 82550; 82962; 83690; 83721; 84436; 84443; 84484; 85025; 85610; 86850; 86900; 86901; 93005; 93010; 94010; 94760; 97116-GP; 97161-GP; 99285-25; J0131

== ENCOUNTER 2021-04-03 01:12 | Inpatient (IN) | payer OTHER ==
[2021-04-03 01:23] VITALS: BMI 32.2
[2021-04-03] MEDS ORDERED: LACTATED RINGERS SOLUTION 1000 ML INFUS.BAG IV ONE (01:28)
[2021-04-03 02:10] LABS: BASO % 0.2 % (0-2.0); EOS % 0.4 % (0-4.5); HEMATOCRIT 39.8 % (32.4-45.2); HEMOGLOBIN 13.1 GM/dL (10.7-15.3); LYMPH % 6.6 % (8-40); MCH 28.2 pg (25.7-33.7); MEAN CELL VOLUME 85.5 fl (80-96); MEAN PLT VOLUME 7.8 fl (7.5-11.1); MONO % 5.8 % (3.8-10.2); PLATELET COUNT 214 K/MM3 (134-434); RBC 4.66 M/mm3 (3.60-5.2); RDW 14.3 % (11.6-15.6); WHITE BLOOD COUNT 14.5 K/mm3 (4.0-10.0)
[2021-04-03 02:20] LABS: CHLORIDE 107 mmol/L (98-107); SODIUM 136 mmol/L (136-145)
[2021-04-03 02:23] LABS: ALBUMIN 3.4 g/dl (3.4-5.0); BLOOD UREA NITROGEN 9.8 mg/dL (7-18); CALCIUM 8.4 mg/dL (8.5-10.1); CO2 26 mmol/L (21-32); GLUCOSE,RANDOM 110 mg/dL (74-106); LIPASE 25 U/L (73-393)
[2021-04-03 02:26] LABS: CREATININE 0.8 mg/dL (0.55-1.3); SGOT/AST 53 U/L (15-37); SGPT/ALT 27 U/L (13-61)
[2021-04-03 02:28] LABS: ALK PHOS 99 U/L (45-117); BILIRUBIN,TOTAL 0.5 mg/dL (0.2-1); TOT PROT 7.4 g/dl (6.4-8.2)
[2021-04-03] MEDS ORDERED: ACETAMINOPHEN 1000 MG/100 ML VIAL (NON FORMULARY) IVPB ONE (02:40)
[2021-04-03] MEDS ORDERED: ACETAMINOPHEN INJECTION 100 ML IVPB ONE (03:04)
[2021-04-03 03:12] LABS: ANION GAP 3 MMOL/L (8-16)
[2021-04-03] MEDS ORDERED: DEXTROSE 5%-NORMAL SALINE 1,000 ML IV SCH (07:30)
[2021-04-03] MEDS ORDERED: ONDANSETRON 4 MG/2 ML VIAL IVPUSH PRN ×4 (07:52→14:27)
[2021-04-03] MEDS ORDERED: ONDANSETRON 4 MG/2 ML VIAL ONE (08:10)
[2021-04-03 09:53] LABS: INR 1.12 (0.83-1.09); PROTHROMBIN TIME (PATIENT) 13.5 SEC (9.7-13.0)
[2021-04-03 09:56] LABS: ACTIVATED PTT 23.3 SECONDS (25.2-36.5)
[2021-04-03] MEDS ORDERED: PROMETHAZINE HCL 25 MG/1 ML VIAL IVPUSH PRN (11:58)
[2021-04-03] MEDS ORDERED: LACTATED RINGERS SOLUTION 1,000 ML IV SCH (12:00)
[2021-04-03] MEDS ORDERED: PROPOFOL 20 ML ONE ×2 (12:03)
[2021-04-03] MEDS ORDERED: LIDOCAINE HCL/PF 2% SDV 5ML VIAL ONE (12:04)
[2021-04-03] MEDS ORDERED: MIDAZOLAM HCL 2 MG/2 ML SINGLE DOSE VIAL ONE (12:04)
[2021-04-03] MEDS ORDERED: BUPIVACAINE HCL/PF 0.5% (5MG/ML) 10 ML VIAL ONE (12:23)
[2021-04-03] MEDS ORDERED: SUCCINYLCHOLINE CHLORIDE 200 MG/10 ML SYRINGE ONE (12:32)
[2021-04-03] MEDS ORDERED: ROCURONIUM BROMIDE 50 MG/5 ML SYRINGE ONE (12:32)
[2021-04-03] MEDS ORDERED: ceFAZolin SODIUM 1 GM VIAL ONE (12:34)
[2021-04-03] MEDS ORDERED: SODIUM CHLORIDE 0.9% P/F 10 ML VIAL IJ ONE (12:35)
[2021-04-03] MEDS ORDERED: ceFAZolin SODIUM 1 GM VIAL IVPB ONE (12:48)
[2021-04-03] MEDS ORDERED: DEXAMETHASONE SOD PHOSPHATE 4 MG/1 ML VIAL ONE (13:01)
[2021-04-03] MEDS ORDERED: BUPIVACAINE HCL/PF 0.5% (5 MG/ML) 30 ML VIAL IJ ONE ×2 (13:10→13:41)
[2021-04-03] MEDS ORDERED: KETOROLAC TROMETHAMINE 30 MG/1 ML VIAL ONE (13:27)
[2021-04-03] MEDS ORDERED: GLYCOPYRROLATE 0.2 MG/1 ML VIAL ONE (13:41)
[2021-04-03] MEDS ORDERED: NEOSTIGMINE METHYLSULFATE 0.5 MG/ML - 10 ML MDV ONE (13:41)
[2021-04-03] MEDS ORDERED: METOPROLOL TARTRATE 5 MG/5 ML VIAL ONE (13:54)
[2021-04-03] MEDS ORDERED: ACETAMINOPHEN 1000 MG/100 ML VIAL (NON FORMULARY) IVPB PRN (14:13)
[2021-04-03] MEDS ORDERED: oxyCODONE HCL 5 MG TABLET PO PRN (14:13)
[2021-04-03] MEDS ORDERED: PROMETHAZINE HCL 25 MG/1 ML VIAL IVPB PRN (14:27)
[2021-04-03] MEDS ORDERED: PNEUMOC 13-VAL CONJ-DIP CRM/PF 0.5 ML DISP.SYRIN IM ONE (20:15)
[2021-04-03] MEDS ORDERED: PNEUMOCOCCAL 23 VACCINE 0.5 ML VIAL IM ONE (20:30)
[2021-04-03] MEDS: LACTATED RINGERS SOLUTION 1,000 ML IV SCH (21:52)
[2021-04-04 08:11] LABS: BASO % 0.1 % (0-2.0); EOS % 0.1 % (0-4.5); HEMATOCRIT 36.3 % (32.4-45.2); HEMOGLOBIN 11.9 GM/dL (10.7-15.3); LYMPH % 12.5 % (8-40); MCH 28.3 pg (25.7-33.7); MCHC 32.8 g/dl (32.0-36.0); MEAN CELL VOLUME 86.3 fl (80-96); MEAN PLT VOLUME 8.1 fl (7.5-11.1); MONO % 8.4 % (3.8-10.2); NEUT % 78.9 % (42.8-82.8); PLATELET COUNT 206 K/MM3 (134-434); RBC 4.21 M/mm3 (3.60-5.2); RDW 14.5 % (11.6-15.6); WHITE BLOOD COUNT 12.7 K/mm3 (4.0-10.0)
[2021-04-04 08:49] LABS: BLOOD UREA NITROGEN 14.4 mg/dL (7-18); CALCIUM 8.5 mg/dL (8.5-10.1)
[2021-04-04 08:53] LABS: BILIRUBIN,TOTAL 0.5 mg/dL (0.2-1); CREATININE 0.8 mg/dL (0.55-1.3); TOT PROT 6.1 g/dl (6.4-8.2)
[2021-04-04] MEDS: LACTATED RINGERS SOLUTION 1,000 ML IV SCH (22:17)
[2021-04-05] MEDS ORDERED: ACETAMINOPHEN 325 MG TABLET (FP) PO PRN (10:34)
[2021-04-05 13:34] VITALS: BP 143/84; PULSE 90; TEMP 98
== END 2021-04-05 18:43 | disposition home or self-care (01) | DRG 355 ==
LOC: JER 01:12 → JERBED 04:52 → J6S 15:57
PROVIDERS: ADMIT Hospitalist; ATTEND Family Medicine
PROC: 0WQF0ZZ Repair Abdominal Wall, Open Approach (ICD-10-PCS; principal; 2021-04-03 12:00)
DX: K43.0 Incisional hernia with obstruction, without gangrene (principal); I10 Essential (primary) hypertension; R73.03 Prediabetes; R91.1 Solitary pulmonary nodule; N20.0 Calculus of kidney; E78.5 Hyperlipidemia, unspecified; J44.9 Chronic obstructive pulmonary disease, unspecified; R63.8 Other symptoms and signs concerning food and fluid intake; K43.9 Ventral hernia without obstruction or gangrene; J45.20 Mild intermittent asthma, uncomplicated; R10.9 Unspecified abdominal pain
CPT/HCPCS: 36415; 71045-TC-FY; 74176-TC; 80053; 82550; 82553; 82962; 83605; 83690; 84484; 85025; 85610; 85730; 93005; 93010; 94760; 97116-GP; 97162-GP; 99285-25; C9803; J0131; U0003; U0005

== ENCOUNTER 2021-05-12 12:28 | Emergency (ER) | payer OTHER ==
[2021-05-12 12:46] VITALS: BP 129/85; PULSE 64; TEMP 98; BMI 28.2
[2021-05-12 14:48] LABS: PH,URINE 5.5 (5.0-8.0); URINE APPEARANCE CLEAR; URINE BILIRUBIN NEGATIVE (NEGATIVE); URINE COLOR YELLOW; URINE GLUCOSE (UA) NEGATIVE (NEGATIVE); URINE KETONE TRACE (NEGATIVE); URINE LEUK ESTERASE NEGATIVE (NEGATIVE); URINE NITRITE NEGATIVE (NEGATIVE); URINE PROTEIN TRACE (NEGATIVE)
[2021-05-12] MEDS ORDERED: LIDOCAINE 5% TOPICAL PATCH TP ONE (15:18)
[2021-05-12] MEDS ORDERED: ACETAMINOPHEN 325 MG TABLET (FP) PO ONE (15:18)
[2021-05-12] MEDS ORDERED: ACETAMINOPHEN 325 MG TABLET (FP) ONE (15:39)
[2021-05-12] MEDS ORDERED: LIDOCAINE 5% TOPICAL PATCH ONE (15:39)
[2021-05-12 15:54] LABS: BASO % 0.6 % (0-2.0); EOS % 3.4 % (0-4.5); HEMATOCRIT 40.8 % (32.4-45.2); HEMOGLOBIN 13.5 GM/dL (10.7-15.3); LYMPH % 26.9 % (8-40); MCH 28.1 pg (25.7-33.7); MCHC 33.1 g/dl (32.0-36.0); MEAN PLT VOLUME 7.4 fl (7.5-11.1); MONO % 8.4 % (3.8-10.2); NEUT % 60.7 % (42.8-82.8); PLATELET COUNT 259 10^3/uL (134-434); RDW 14.2 % (11.6-15.6); WHITE BLOOD COUNT 9.4 K/mm3 (4.0-10.0)
[2021-05-12 16:18] LABS: CHLORIDE 105 mmol/L (98-107); SODIUM 137 mmol/L (136-145)
[2021-05-12 16:20] LABS: CALCIUM 9.2 mg/dL (8.5-10.1)
[2021-05-12 16:21] LABS: ALBUMIN 3.8 g/dl (3.4-5.0); BLOOD UREA NITROGEN 14.9 mg/dL (7-18); CO2 27 mmol/L (21-32); GLUCOSE,RANDOM 91 mg/dL (74-106)
[2021-05-12 16:24] LABS: CREATININE 0.9 mg/dL (0.55-1.3); SGOT/AST 52 U/L (15-37); SGPT/ALT 26 U/L (13-61)
[2021-05-12 16:26] LABS: BILIRUBIN,TOTAL 0.4 mg/dL (0.2-1); TOT PROT 7.6 g/dl (6.4-8.2)
[2021-05-12 16:28] LABS: ALK PHOS 95 U/L (45-117)
[2021-05-12 16:30] LABS: ANION GAP 4 MMOL/L (8-16)
[2021-05-12] MEDS ORDERED: LIDOCAINE PATCH REMOVAL MC SCH (22:00)
== END 2021-05-12 16:54 | disposition home or self-care (01) ==
LOC: JER 12:28
DX: R35.0 Frequency of micturition (principal); R10.9 Unspecified abdominal pain
CPT/HCPCS: 36415; 80053; 81003; 82962; 85025; 87086; 93005; 93010; 99284-25